=== PATIENT | male | born 1945 | race Caucasian/White ===

== ENCOUNTER 2018-02-21 20:18 | Inpatient (IN) | payer OTHER ==
[2018-02-21] MEDS ORDERED: NS 1,000 ML IV ONE (20:48)
[2018-02-21] MEDS ORDERED: ONDANSETRON 4 MG/2 ML VIAL IVP ONE (20:48)
--- NOTE | 2018-02-21 21:01 | CPEKG ---
Heart Rate: 80 RR Interval: 750 P-R Interval: 148 QRSD Interval: 82 QT Interval: 364 QTC Interval: 420 P [place]: 64 QRS [place]: 232 T Wave [place]: 30 EKG Severity - OTHERWISE NORMAL ECG - EKG Impression: SINUS RHYTHM EKG Impression: RIGHT AXIS DEVIATION Electronically Signed By: Luana Mcnally 21-Feb-2018 22:43:00
[2018-02-21 21:16] LABS: PLATELET COUNT 189 10^3/uL (150-400)
[2018-02-21] MEDS ORDERED: LIDOCAINE 2% VISCOUS 15 ML UDCUP PO ONE (21:32)
[2018-02-21] MEDS ORDERED: MAG HYDROX/AL HYDROX/SIMETH 30 ML UDCUP PO ONE (21:32)
[2018-02-21] MEDS ORDERED: HYOSCYAMINE SULFATE 0.125 MG TAB PO ONE (21:32)
[2018-02-21] MEDS ORDERED: FAMOTIDINE 20 MG/2 ML SDV IVP ONE (21:32)
--- NOTE | 2018-02-21 21:32 | EDPHY ---
General Time Seen by Provider: 02/21/18 21:17 Narrative: CHIEF COMPLAINT: Nausea vomiting, abdominal pain HISTORY OF PRESENT ILLNESS: Patient presents with spouse at bedside. He complains of nausea and vomiting that started 7:00 a.m. This morning. He feels that is related to a meal he had a restaurant last night at 5:00 p.m.. He woke with sudden onset of vomiting and several episodes of this. It is nonbloody mostly clear to yellow tinged. No diarrhea at any time. He does describe "rabbit pellets." The pain started in the epigastrium and radiates up into the chest. He is also now having generalized abdominal pain as well. Worse with any kind of movement. Minimal improvement rest. He does feel better to sit up at this time. No other associated complaints or modifying factors. No previous coronary artery diagnosis. No family history of NE or coronary artery disease prior to age 65. REVIEW OF SYSTEMS: Ten systems reviewed and are negative unless otherwise noted in the HPI PCP: Dr. Vallecillo SPECIALISTS: Orthopedist Dr. Loving PAST MEDICAL HISTORY: Orthopedic injuries PAST SURGICAL HISTORY: Bilateral knee surgeries remotely. SOCIAL HISTORY: Never smoker. Rare alcohol use. No drug use. Lives and works here locally. FAMILY HISTORY: Noncontributory EXAMINATION General Appearance: Alert, no distress. Chose to sit up in a chair Head: normocephalic, atraumatic Eyes: Pupils equal and round, no conjunctival pallor or injection ENT, Mouth: Mucous membranes moist. Airway is widely patent. Neck: Normal inspection, supple, non-tender Respiratory: Lungs are clear to auscultation. No wheezing, rhonchi or crackles. Splinting. Cardiovascular: Regular rate and rhythm. No murmur. No carotid bruit. No abdominal bruit appreciated Gastrointestinal: Abdomen is soft and nondistended. There is generalized tenderness in all 4 quadrants symmetrically. No guarding. No rigidity. Bowel sounds are present in all 4 quadrants. There is no CVA tenderness. Back: non-tender, no bony abnormalities Neurological: A&O, nonfocal, normal gait Skin: Warm and dry, no rash. No petechiae or purpura. No ecchymosis. Extremities: Nontender, no pedal edema symmetric range of motion. Psychiatric: Mood and affect normal DIFFERENTIAL DIAGNOSES: Including but not limited to cholecystitis, cholelithiasis, pancreatitis, enteritis, colitis, gastroenteritis, reflux, esophagitis, ACS MDM: 9:30 p.m. Nausea vomiting followed by epigastric abdominal pain that is now changed to generalized abdominal pain the abdomen is soft and benign but does have tenderness in all 4 quadrants. He has a mild leukocytosis. He is not tolerating intake by mouth. Thus I have ordered CT scan of the abdomen pelvis. I have also ordered Pepcid, IV pain medication and GI cocktail. He has had no diarrhea, thus the likelihood of true gastroenteritis or food-borne illness is low. He does not have any abnormality on his EKG, and his vital signs are within normal limits. Troponin is pending. Chest x-ray has been ordered. He is in no acute distress. Prefers to sit up in a chair bedside but his abdominal exam was performed while completely supine in a bed. 10:05 p.m. Troponin is negative. I have reviewed the chest x-ray without the aid of the radiologist read the mediastinum does appear mildly widened to me. Thus I reviewed the x-ray with Dr. Mcnally and he agrees. This may be artifact but in order to ensure no intrathoracic abnormality we have added CT angiography of the chest. This will be in addition to the CT abdomen and pelvis. The patient will be going over the very soon. I relayed the patient remains awake and alert no acute distress. He is not hypotensive. He has good signs of perfusion his pain is significantly improved with the IV morphine he received 11:15 p.m. I have reviewed the CT scans with Dr. Mcnally, without the aid of the radiologist. I do not appreciate any dissection of the aorta. The formal interpretation is pending radiologist at this time. I have re-evaluated him at that time he was asking for further pain medication we have administered 0.5 mg of Dilaudid IV. 11:35 p.m. Patient re-evaluated. Pain improving. Resting comfortably. Awaiting CT interpretations. 11:40 p.m. Case discussed with radiologist Dr. Ramirez. CT scan of the chest reveals normal appearing aorta. No PE. Hiatal hernia noted. No other acute findings. CT abdomen and pelvis reveals same hiatal hernia. There is gallbladder hydrops of 1.6 cm stone lumen. No choledocholithiasis. Minimal inflammation of the gallbladder. No pericholecystic fluid. There is some mild inflammation of the small bowel and stomach. There is an incidental note of a spondylolysis at L5-S1 without obvious spondylolisthesis. We discussed that the patient may need a HIDA scan the morning but there is not appear to be any clinical significance for ultrasound at this time. 11:45 p.m. Patient re-evaluated. Comfortable at this time but still complains of pain. He agrees with admission to the hospital. Nominal exam remains nonacute, nonsurgical at this time. No peritonitis. He has not vomited since arrival. Given the laboratory studies and his CT scan findings he will be admitted to the hospital. 12:00 a.m. Case discussed with hospitalist Dr. Figueroa. She agrees with admission to the hospital. He is admitted to her service in stable condition to a medical- surgical bed. Admitted for fluid resuscitation, pain control and likely will need a HIDA scan in the morning. Do not feel he warrants surgical intervention at this time, and Dr. Figueroa will evaluate the patient determine any necessary consultations. 12:30 a.m. 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 The patient is already well aware of this. This was diagnosed in the young teen years for him likely congenital. No spondylolisthesis. No deficits from this on examination today. He has been followed by this from primary care physician and spinal specialist. He is currently being taken to his bed upstairs at this time stable condition. SUPERVISION: Patient was independently examined, but I discussed the case with my secondary supervising physician Dr. Mcnally - Diagnostics Imaging Results: Imaging Impressions Abdomen CT 02/21/18 21:31 Impression: 1. There is no CT evidence of pulmonary artery thromboemboli. 2. There is no evidence of a thoracic aortic aneurysm or dissection. 3. There is a small hiatal hernia. Contrast Enhanced CT Scan of the Abdomen and Pelvis: Liver: The portal venous phase is normal, with no mass. Bile Ducts: Normal. Gallbladder: There is gallbladder hydrops and a 1.6 x 1.6 cm gallstone present. There is some trace inflammatory thickening along the right anterior conal fascia, with some equivocal trace pericholecystic fluid seen on series 8, image 18. If there is further clinical concern, sonography or a nuclear medicine HIDA scan could be considered. Pancreas: The pancreatic head, neck, body, tail, and the uncinate process appear normal. Spleen: Normal. Adrenal Glands: Normal. Kidneys/Ureters/Urinary Bladder: The kidneys are normal in size, shape, and position. There is no hydronephrosis, although there are extrarenal pelves, left greater than right. The ureters are not dilated or deviated. The urinary bladder is incompletely distended. GI Tract: There is mild gastric distention with a fluid debris level. There is a small amount of intraluminal fluid within portions of the small bowel, however not appearing abnormally dilated. There is some minimal wall enhancement of the distal ileum. The above features may reflect a mild gastroenteric dysmotile syndrome. There is moderate constipation, predominantly right-sided. There are some rare noninflamed sigmoid colon diverticula. The retrocecal appendix appears normal, seen on coronal series 603, images 45-48 and on series 8, images 44-54. Retroperitoneum: There is no adenopathy along the periaortic oh iliac vascular tree. Mesentery/Omentum/Peritoneum: There is no ascites, pneumoperitoneum, or intra- abdominal localized fluid collection. Vessels: The abdominal aorta is normal in size, and tapers normally. The IVC is normal in caliber. The splenic vein, superior mesenteric vein, and the main portal vein are patent. Reproductive Organs: The prostate gland is mildly enlarged, measuring 3.7 x 4.8 cm. The seminal vesicles are unremarkable. Abdominal Wall: Negative. Osseous Structures: There is trace retrolisthesis at L4-L5. While there is no significant L5-S1 spondylolisthesis, there are bilateral L5 pars interarticularis defects (spondylolysis). There is no aggressive osseous lesion. Impression: 1. Gallbladder hydrops with cholelithiasis and questionable trace pericholecystic fluid, as well as mild inflammation along the right anterior lateral conal fascia. If there is further clinical concern, correlative sonography or a nuclear medicine hepatobiliary scan could be considered. 2. Query mild gastroenteric dysmotile syndrome. There is no evidence of a mechanical bowel obstruction. 3. Moderate constipation, predominantly right-sided. 4. 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 Findings were discussed with Nikhil De La Torre PA-C at 23:38, on 02/21/2018. Chest X-Ray 03/25/18 21:34 Impression: No acute intrathoracic abnormality. Chest/Thorax CTA 02/21/18 22:04 Impression: 1. There is no CT evidence of pulmonary artery thromboemboli. 2. There is no evidence of a thoracic aortic aneurysm or dissection. 3. There is a small hiatal hernia. Contrast Enhanced CT Scan of the Abdomen and Pelvis: Liver: The portal venous phase is normal, with no mass. Bile Ducts: Normal. Gallbladder: There is gallbladder hydrops and a 1.6 x 1.6 cm gallstone present. There is some trace inflammatory thickening along the right anterior conal fascia, with some equivocal trace pericholecystic fluid seen on series 8, image 18. If there is further clinical concern, sonography or a nuclear medicine HIDA scan could be considered. Pancreas: The pancreatic head, neck, body, tail, and the uncinate process appear normal. Spleen: Normal. Adrenal Glands: Normal. Kidneys/Ureters/Urinary Bladder: The kidneys are normal in size, shape, and position. There is no hydronephrosis, although there are extrarenal pelves, left greater than right. The ureters are not dilated or deviated. The urinary bladder is incompletely distended. GI Tract: There is mild gastric distention with a fluid debris level. There is a small amount of intraluminal fluid within portions of the small bowel, however not appearing abnormally dilated. There is some minimal wall enhancement of the distal ileum. The above features may reflect a mild gastroenteric dysmotile syndrome. There is moderate constipation, predominantly right-sided. There are some rare noninflamed sigmoid colon diverticula. The retrocecal appendix appears normal, seen on coronal series 603, images 45-48 and on series 8, images 44-54. Retroperitoneum: There is no adenopathy along the periaortic oh iliac vascular tree. Mesentery/Omentum/Peritoneum: There is no ascites, pneumoperitoneum, or intra- abdominal localized fluid collection. Vessels: The abdominal aorta is normal in size, and tapers normally. The IVC is normal in caliber. The splenic vein, superior mesenteric vein, and the main portal vein are patent. Reproductive Organs: The prostate gland is mildly enlarged, measuring 3.7 x 4.8 cm. The seminal vesicles are unremarkable. Abdominal Wall: Negative. Osseous Structures: There is trace retrolisthesis at L4-L5. While there is no significant L5-S1 spondylolisthesis, there are bilateral L5 pars interarticularis defects (spondylolysis). There is no aggressive osseous lesion. Impression: 1. Gallbladder hydrops with cholelithiasis and questionable trace pericholecystic fluid, as well as mild inflammation along the right anterior lateral conal fascia. If there is further clinical concern, correlative sonography or a nuclear medicine hepatobiliary scan could be considered. 2. Query mild gastroenteric dysmotile syndrome. There is no evidence of a mechanical bowel obstruction. 3. Moderate constipation, predominantly right-sided. 4. 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 Findings were discussed with Nikhil De La Torre PA-C at 23:38, on 02/21/2018. - History Smoking Status: Never smoked - Objective Vital Signs: Initial Vital Signs Temperature (C) 98.2 F 02/21/18 20:21 Heart Rate 96 02/21/18 20:21 Respiratory Rate 17 02/21/18 20:21 Blood Pressure 145/94 H 02/21/18 20:21 O2 Sat (%) 93 02/21/18 20:21 O2 Delivery Mode Nasal Cannula O2 (L/minute) 2 Allergies/Adverse Reactions: meloxicam Allergy (Verified 02/21/18 20:25) Home Medications: Medication Instructions Recorded NK [No Known Home Meds] 02/21/18 Laboratory Results: Laboratory Results 02/21/18 20:45 02/21/18 20:45 02/21/18 02/21/18 02/21/18 20:45 20:45 20:45 WBC 13.37 10^3/uL H 10^3/uL (3.80-9.50) RBC 5.58 10^6/uL 10^6/uL (4.40-6.38) Hgb 16.9 g/dL g/dL (13.7-17.5) Hct 49.3 % % (40.0-51.0) MCV 88.4 fL fL (81.5-99.8) MCH 30.3 pg pg (27.9-34.1) MCHC 34.3 g/dL g/dL (32.4-36.7) RDW 12.6 % % (11.5-15.2) Plt Count 189 10^3/uL 10^3/uL (150-400) MPV 9.6 fL fL (8.7-11.7) Neut % (Auto) 81.7 % H % (39.3-74.2) Lymph % (Auto) 10.1 % L % (15.0-45.0) Dickenson % (Auto) 7.0 % % (4.5-13.0) Eos % (Auto) 0.6 % % (0.6-7.6) Baso % (Auto) 0.3 % % (0.3-1.7) Nucleat RBC Rel Count 0.0 % % (0.0-0.2) Absolute Neuts (auto) 10.93 10^3/uL H 10^3/uL (1.70-6.50) Absolute Lymphs (auto) 1.35 10^3/uL 10^3/uL (1.00-3.00) Absolute Monos (auto) 0.93 10^3/uL H 10^3/uL (0.30-0.80) Absolute Eos (auto) 0.08 10^3/uL 10^3/uL (0.03-0.40) Absolute Basos (auto) 0.04 10^3/uL 10^3/uL (0.02-0.10) Absolute Nucleated RBC 0.00 10^3/uL 10^3/uL (0-0.01) Immature Gran % 0.3 % % (0.0-1.1) Immature Gran # 0.04 10^3/uL 10^3/uL (0.00-0.10) Sodium 143 mEq/L mEq/L (135-145) Potassium 4.2 mEq/L mEq/L (3.5-5.2) Chloride 102 mEq/L mEq/L (97-110) Carbon Dioxide 26 mEq/l mEq/l (22-31) Anion Gap 15 mEq/L mEq/L (8-16) BUN 11 mg/dL mg/dL (7-23) Creatinine 1.0 mg/dL mg/dL (0.7-1.3) Estimated GFR > 60 Glucose 93 mg/dL mg/dL (70-100) Calcium 10.2 mg/dL mg/dL (8.5-10.4) Total Bilirubin 1.0 mg/dL mg/dL (0.1-1.4) Conjugated Bilirubin 0.2 mg/dL mg/dL (0.0-0.5) Unconjugated Bilirubin 0.8 mg/dL mg/dL (0.0-1.1) AST 29 IU/L IU/L (17-59) ALT 39 IU/L IU/L (21-72) Alkaline Phosphatase 64 IU/L IU/L (38-126) Troponin I < 0.012 ng/mL ng/mL (0.000-0.034) Total Protein 8.1 g/dL g/dL (6.3-8.2) Albumin 4.7 g/dL g/dL (3.5-5.0) Lipase 80 IU/L IU/L (23-300) Medications Given: Discontinued Medications Al Hydroxide/Mg Hydroxide (Maalox Susp) 30 ml PO ONCE ONE Stop: 02/21/18 21:33 Last Admin: 02/21/18 21:51 Dose: 30 ml Famotidine (Pepcid) 20 mg IVP EDNOW ONE Stop: 02/21/18 21:33 Last Admin: 02/21/18 21:51 Dose: 20 mg Hydromorphone HCl (Dilaudid) 0.5 mg IVP EDNOW ONE Stop: 02/21/18 23:05 Last Admin: 02/21/18 23:13 Dose: 0.5 mg Hyoscyamine Sulfate (Levsin, Hyomax-Sl) 0.25 mg PO ONCE ONE Stop: 02/21/18 21:33 Last Admin: 02/21/18 21:51 Dose: 0.25 mg Sodium Chloride (Ns) 1,000 mls @ 0 mls/hr IV ONCE ONE; Wide Open PRN Reason: Protocol Stop: 02/21/18 20:49 Last Admin: 02/21/18 20:56 Dose: 1,000 mls Lidocaine (Lidocaine 2% Viscous) 15 ml PO ONCE ONE Stop: 02/21/18 21:33 Last Admin: 02/21/18 21:51 Dose: 15 ml Morphine Sulfate (Morphine) 6 mg IVP EDNOW ONE Stop: 02/21/18 21:33 Last Admin: 02/21/18 21:53 Dose: 6 mg Ondansetron HCl (Zofran) 4 mg IVP EDNOW ONE Stop: 02/21/18 20:49 Last Admin: 02/21/18 20:56 Dose: 4 mg Departure - Departure Disposition: Home, Routine, Self-Care Clinical Impression: Enteritis, Gallbladder hydrops, Spondylolysis of lumbar region Gastritis Qualifiers: Gastritis type: unspecified gastritis Chronicity: acute Gastritis bleeding: without bleeding Qualified Code(s): K29.00 - Acute gastritis without bleeding Cholelithiasis Qualifiers: Cholelithiasis location: gallbladder Cholecystitis presence: without cholecystitis Biliary obstruction: without biliary obstruction Qualified Code(s) : K80.20 - Calculus of gallbladder without cholecystitis without obstruction Condition: Good
[2018-02-21] MEDS ORDERED: IOPAMIDOL (ISOVUE-300) 100 ML BTL ONE (21:44)
[2018-02-21] MEDS ORDERED: IOPAMIDOL (ISOVUE 370) 100 ML BTL IV ONE (22:08)
[2018-02-21] MEDS ORDERED: HYDROmorphONE/DILAUDID 1 MG/ML INJ IVP ONE (23:04)
[2018-02-21] MEDS ORDERED: HYDROmorphONE/DILAUDID 2 MG/ML INJ ONE (23:10)
[2018-02-22] MEDS ORDERED: NS 1,000 ML IV SCH (01:00)
[2018-02-22] MEDS ORDERED: MBX SOLN 30 ML BOTTLE PO PRN (01:03)
[2018-02-22] MEDS: ONDANSETRON 4 MG/2 ML VIAL IVP PRN (01:27)
[2018-02-22] MEDS: HYDROmorphone HCL/NS 0.5 MG/ML SYR IVP PRN ×4 (01:27→21:08)
[2018-02-22 04:54] LABS: PLATELET COUNT 143 10^3/uL (150-400)
[2018-02-22] MEDS ORDERED: LACTULOSE 20 GM/30 ML UDCUP PO PRN (07:59)
[2018-02-22] MEDS ORDERED: MAGNESIUM HYDROXIDE 30 ML UDCUP PO PRN (07:59)
[2018-02-22] MEDS ORDERED: BISACODYL 10 MG SUPP PR PRN (07:59)
--- NOTE | 2018-02-22 08:28 | PDGENHP ---
History and Physical - Chief Complaint Abdominal pain, nausea vomiting - History of Present Illness Source-patient able to provide majority of the history. He is a little somnolent after receiving Dilaudid. EMR was reviewed and case discussed with ED provider. HPI-this is a pleasant 72-year-old gentleman with past medical history significant for arthritis and spondylosis lysis who presents emergency department today with complaints of 1 day history of nausea vomiting and diffuse abdominal pain. Patient reports that he woke up approximately 0700 with active nausea and vomiting. He denies any hematemesis. No melena or hematochezia. Patient does report that he passed a few rabbit pellets but otherwise has had inconsistent about BMs. Patient denies any fevers or chills. No recent sick contacts. Patient thinks he may have contracted something while eating at a restaurant yesterday. His however is healthy. Patient does note that approximately 2 weeks ago patient when out to dine and had similar symptoms the following day but did not seek any medical treatment at that time. Patient denies any focal abdominal pain. Positive distension. Pain is described as cramping intermittent. Dilaudid has improved his symptoms slightly but he continues to have intermittent exacerbations. Patient has not had any further episodes of vomiting since arrival to the floor. History Information - Allergies/Home Medication List Allergies/Adverse Reactions: meloxicam Allergy (Verified 02/21/18 20:25) Home Medications: NK [No Known Home Meds] 02/21/18 [Last Taken Unknown] I have personally reviewed and updated: family history, medical history, social history, surgical history - Past Medical History Additional medical history: Arthritis, spondylolytic lysis - Surgical History Additional surgical history: Bilateral knee arthroscopic surgery. - Family History Additional family history: Father with history of sleep disorder. No family history of coronary artery disease or gallbladder disease. - Social History Smoking Status: Never smoked Alcohol Use: Rarely Drug Use: None Additional social history: Patient is lives with his . Cor status- full Review of Systems Review of Systems: ROS: 10pt was reviewed & negative except for what was stated in HPI & below Constitutional: Denies: chills, fever, weight loss EENMT: Reports: no symptoms Cardiac: Reports: no symptoms Respiratory: Reports: no symptoms Gastrointestinal: Reports: vomitting, abdominal pain, constipation, nausea, other (See HPI). Denies: black stools, rectal bleeding, diarrhea Genitourinary: Denies: dysuria, hematuria Muscolosketal: Reports: no symptoms. Denies: muscle pain Skin: Reports: no symptoms Neurological: Reports: no symptoms Physical Exam Physical Exam: Selected Entries 02/21/18 20:21 Blood Pressure Automatic Method Heart Rate 96 Respiratory 17 Rate O2 Sat (%) 93 Temperature (C) 36.8 C Blood Pressure 145/94 H Mean Arterial 111 H Pressure (MAP) O2 Delivery Room Air Mode Temperature Oral Source Temp Pulse Resp BP Pulse Ox 36.7 C 85 16 112/71 94 02/22/18 08:00 02/22/18 08:00 02/22/18 08:00 02/22/18 08:00 02/22/18 08:00 O2 (L/minute) 2 Constitutional: no apparent distress, chronically ill appearing, uncomfortable, other (NAD. Patient is resting in bed asleep. It does appear uncomfortable and grimaces intermittently.) Eyes: PERRL, anicteric sclera, EOMI, No scleral injection Ears, Nose, Mouth, Throat: no oral mucosal ulcers, dry mucous membranes, other ( No nasal discharge), No poor dentition Cardiovascular: regular rate and rhythym, no murmur, rub, or gallop, pulses symmetric bilaterally, No edema Peripheral Pulses: 2+: dorsalis-pedis (R), dorsalis-pedis (L) Respiratory: no respiratory distress, no rales or rhonchi, clear to auscultation , reduced air movement (Bibasilar.), No expiratory wheeze Gastrointestinal: no palpable masses, tenderness (Diffusely tender.), distension , other (Hypoactive bowel sounds. Patient abdomen soft but full by lateral lower abdomen.), No patel's sign, No guarding, No rebound Genitourinary: no bladder tenderness, No urbina in urethra Skin: warm, other (Pallor), No rash Musculoskeletal: generalized weakness Neurologic: AAOx3 (Patient is slightly sedated following Dilaudid.), sensation intact bilaterally, No CN II-XII Intact, No facial droop Psychiatric: interacting appropriately, not anxious, not encephalopathic, thought process linear, flat affect Lab Data & Imaging Review 02/22/18 04:15 02/22/18 04:15 WBC 12.20 10^3/uL (3.80-9.50) H 02/22/18 04:15 RBC 4.76 10^6/uL (4.40-6.38) 02/22/18 04:15 Hgb 14.5 g/dL (13.7-17.5) 02/22/18 04:15 Hct 43.0 % (40.0-51.0) 02/22/18 04:15 MCV 90.3 fL (81.5-99.8) 02/22/18 04:15 MCH 30.5 pg (27.9-34.1) 02/22/18 04:15 MCHC 33.7 g/dL (32.4-36.7) 02/22/18 04:15 RDW 12.9 % (11.5-15.2) 02/22/18 04:15 Plt Count 143 10^3/uL (150-400) L 02/22/18 04:15 MPV 9.8 fL (8.7-11.7) 02/22/18 04:15 Neut % (Auto) 81.9 % (39.3-74.2) H 02/22/18 04:15 Lymph % (Auto) 7.6 % (15.0-45.0) L 02/22/18 04:15 [place] % (Auto) 9.7 % (4.5-13.0) 02/22/18 04:15 Eos % (Auto) 0.3 % (0.6-7.6) L 02/22/18 04:15 Baso % (Auto) 0.2 % (0.3-1.7) L 02/22/18 04:15 Nucleat RBC Rel Count 0.0 % (0.0-0.2) 02/22/18 04:15 Absolute Neuts (auto) 9.98 10^3/uL (1.70-6.50) H 02/22/18 04:15 Absolute Lymphs (auto) 0.93 10^3/uL (1.00-3.00) L 02/22/18 04:15 Absolute Monos (auto) 1.18 10^3/uL (0.30-0.80) H 02/22/18 04:15 Absolute Eos (auto) 0.04 10^3/uL (0.03-0.40) 02/22/18 04:15 Absolute Basos (auto) 0.03 10^3/uL (0.02-0.10) 02/22/18 04:15 Absolute Nucleated RBC 0.00 10^3/uL (0-0.01) 02/22/18 04:15 Immature Gran % 0.3 % (0.0-1.1) 02/22/18 04:15 Immature Gran # 0.04 10^3/uL (0.00-0.10) 02/22/18 04:15 Sodium 140 mEq/L (135-145) 02/22/18 04:15 Potassium 4.4 mEq/L (3.5-5.2) 02/22/18 04:15 Chloride 105 mEq/L (97-110) 02/22/18 04:15 Carbon Dioxide 25 mEq/l (22-31) 02/22/18 04:15 Anion Gap 10 mEq/L (8-16) 02/22/18 04:15 BUN 11 mg/dL (7-23) 02/22/18 04:15 Creatinine 0.9 mg/dL (0.7-1.3) 02/22/18 04:15 Estimated GFR > 60 02/22/18 04:15 Glucose 110 mg/dL (70-100) H 02/22/18 04:15 Calcium 9.1 mg/dL (8.5-10.4) 02/22/18 04:15 Magnesium 1.7 mg/dL (1.6-2.3) 02/22/18 04:15 Total Bilirubin 1.0 mg/dL (0.1-1.4) 02/21/18 20:45 Conjugated Bilirubin 0.2 mg/dL (0.0-0.5) 02/21/18 20:45 Unconjugated Bilirubin 0.8 mg/dL (0.0-1.1) 02/21/18 20:45 AST 29 IU/L (17-59) 02/21/18 20:45 ALT 39 IU/L (21-72) 02/21/18 20:45 Alkaline Phosphatase 64 IU/L (38-126) 02/21/18 20:45 Troponin I < 0.012 ng/mL (0.000-0.034) 02/21/18 20:45 Total Protein 8.1 g/dL (6.3-8.2) 02/21/18 20:45 Albumin 4.7 g/dL (3.5-5.0) 02/21/18 20:45 Lipase 80 IU/L (23-300) 02/21/18 20:45 Imaging Review: Portable AP Upright Chest, at 9:48 PM Clinical History: 72-year-old male with worsening epigastric pain radiating into the chest. The patient has complained of nausea and vomiting that began at 7:00 AM today, and was related to a meal from a restaurant last evening. Comparison Study: Chest, dated 02/17/2006. Findings: Telemetry monitoring lead lines are present. The cardiac and mediastinal silhouette is normal in size. There is no focal infiltrate, atelectasis, pleural effusion, peripheral interstitial edema, or pneumothorax. There is no free, subdiaphragmatic air. The osseous structures are notable for a mild levothoracic scoliosis. Impression: No acute intrathoracic abnormality. CT Angiography of the Chest, and Contrast Enhanced CT Scan of the Abdomen and Pelvis Clinical History: 72-year-old male with worsening epigastric pain radiating to the chest, complaining of nausea and vomiting that began at 7:00 AM today, and appears to be related to a meal from a restaurant last evening. The patient does have an elevated white blood cell count. Rule out acute thoracic aortic or intra-abdominal abnormality. Technique: Neither oral nor rectal contrast was administered. Following the uncomplicated intravenous administration of 90 mL of Isovue-370, a multidetector helical CT scan was initially obtained during peak systemic arterial phase from the base of the neck inferiorly to the upper abdomen, and then subsequent portal venous phase imaging was obtained from the lung bases inferiorly through the proximal femora, with images reformatted at 5.00 and 1.25 mm increments, and reviewed at a variety of window and level settings. Parasagittal and paracoronal reconstructed images are reviewed on the workstation. The DFOV is 42.0 cm. Dose reduction techniques were utilized. Comparison Study: Chest radiography at 9:48 PM this evening. Findings: CT Angiography: The main pulmonary artery, the main right and left pulmonary arteries, and the first and second order pulmonary segments are contrast-opacified, with no filling defect to suggest acute or chronic thromboemboli. There is no interventricular septum deviation, nor is there any reflux of contrast into the intrahepatic IVC. The ascending and descending thoracic aorta, as well as the visualized upper abdominal aorta are normal in caliber, with no aneurysm or dissection. The ascending thoracic aorta measures 3.5 x 3.3 cm at the crossing right pulmonary artery, and the descending thoracic aorta measures 2.8 x 2.7 cm at this same level. There is a normal anatomic arrangement of the great vessels off of the aortic arch, with the exception that the left vertebral artery also arises directly off the aortic arch rather than at the left innominate-subclavian junction. There is some minimal LAD coronary artery atherosclerotic calcification. The pericardium is normal. The heart size is normal. Contrast-Enhanced CT Scan of the Chest: The lungs are clear of infiltrate, atelectasis, or pulmonary nodule. There is no pleural effusion, pneumothorax, or pneumomediastinum. There is no pathologically-enlarged adenopathy. The visualized portions of the thyroid gland are normal. The visualized upper abdomen is notable for a "transient hepatic attenuation difference" (JOS) lesion, consistent with physiologic parenchymal enhancement which is noted secondary to a dual hepatic blood supply. On the portal venous phase, this area becomes isodense to the remainder of the hepatic parenchyma. There is a small hiatal hernia observed. The osseous structures are age- appropriate. Impression: 1. There is no CT evidence of pulmonary artery thromboemboli. 2. There is no evidence of a thoracic aortic aneurysm or dissection. 3. There is a small hiatal hernia. Contrast Enhanced CT Scan of the Abdomen and Pelvis: Liver: The portal venous phase is normal, with no mass. Bile Ducts: Normal. Gallbladder: There is gallbladder hydrops and a 1.6 x 1.6 cm gallstone present. There is some trace inflammatory thickening along the right anterior conal fascia, with some equivocal trace pericholecystic fluid seen on series 8, image 18. If there is further clinical concern, sonography or a nuclear medicine HIDA scan could be considered. Pancreas: The pancreatic head, neck, body, tail, and the uncinate process appear normal. Spleen: Normal. Adrenal Glands: Normal. Kidneys/Ureters/Urinary Bladder: The kidneys are normal in size, shape, and position. There is no hydronephrosis, although there are extrarenal pelves, left greater than right. The ureters are not dilated or deviated. The urinary bladder is incompletely distended. GI Tract: There is mild gastric distention with a fluid debris level. There is a small amount of intraluminal fluid within portions of the small bowel, however not appearing abnormally dilated. There is some minimal wall enhancement of the distal ileum. The above features may reflect a mild gastroenteric dysmotile syndrome. There is moderate constipation, predominantly right-sided. There are some rare noninflamed sigmoid colon diverticula. The retrocecal appendix appears normal, seen on coronal series 603, images 45-48 and on series 8, images 44-54. Retroperitoneum: There is no adenopathy along the periaortic oh iliac vascular tree. Mesentery/Omentum/Peritoneum: There is no ascites, pneumoperitoneum, or intra- abdominal localized fluid collection. Vessels: The abdominal aorta is normal in size, and tapers normally. The IVC is normal in caliber. The splenic vein, superior mesenteric vein, and the main portal vein are patent. Reproductive Organs: The prostate gland is mildly enlarged, measuring 3.7 x 4.8 cm. The seminal vesicles are unremarkable. Abdominal Wall: Negative. Osseous Structures: There is trace retrolisthesis at L4-L5. While there is no significant L5-S1 spondylolisthesis, there are bilateral L5 pars interarticularis defects ( spondylolysis). There is no aggressive osseous lesion. Impression: 1. Gallbladder hydrops with cholelithiasis and questionable trace pericholecystic fluid, as well as mild inflammation along the right anterior lateral conal fascia. If there is further clinical concern, correlative sonography or a nuclear medicine hepatobiliary scan could be considered. 2. Query mild gastroenteric dysmotile syndrome. There is no evidence of a mechanical bowel obstruction. 3. Moderate constipation, predominantly right-sided. 4. 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 Findings were discussed with Nikhil De La Torre PA-C at 23:38, on 02/21/2018. Visualized and Interpreted Chest x-ray results: Yes Visualized and Interpreted imaging results: Yes EKG additional interpertation: NSR in the 80s. RAD. In no acute ST changes. Assessment & Plan Assessment: 72-year-old gentleman who presents with 1 day history of diffuse abdominal pain , nausea and vomiting. Abdominal pain-differential diagnosis including biliary colic, gastroenteritis, acute cholecystitis, the constipation. Patient's pain still remains diffuse. He has continues to have some distension. CT abdomen pelvis showing stones and hydrops of the gallbladder with possibly some some small amount of pericholecystic fluid. Patient does not have a Patel sign at time of exam. Will plan to do a HIDA scan and consult surgery for further recommendations. Cholelithiasis (Acute) without evidence of choledocholithiasis. HIDA as noted above. LFTs within normal limits. Gastroenteritis - nausea vomiting persist on worsened with of narcotics. Continue with Zofran p.r.n.. IV fluid hydration. GI cocktail did improve patient's symptoms and will plan to continue this as well. He received some Pepcid in the emergency department. 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 He does not complain of any acute or chronic at back pain at this time. Supportive care needed. Leukocytosis-likely secondary to patient's dehydration and nausea vomiting and possible gastro enteritis versus cholecystitis. Patient has been afebrile will not add any antibiotic therapy at this time. FEN - IV fluids overnight for supplementation. Patient does appear dehydrated. Electrolyte replacement p.r.n.. Patient will be NPO for HIDA scan and surgical consult. PPX - SCDs. holding anticoagulation pending surgical evaluation. encourage mobilization as tolerated. Cor-full Disposition-patient currently admitted observation status pending HIDA scan and surgical evaluation.
[2018-02-22] MEDS: ACETAMINOPHEN 325 MG TAB PO PRN (09:29)
--- NOTE | 2018-02-22 12:06 | HOSPPROG ---
Hospitalist Progress Note Assessment/Plan: #Acute cholecystitis: positive HIDA. Start IV CTX, Flagyl. NPO. Dr George will evaluate -spoke with and pt and they are hesitant about surgery. My concern is that this is 2md episode in past week #Leukocytosis: due to above. Afebrile. Cont abx #Arthritis: stable #Diet: NPO #Disp: warrants inpatient admission for pain control and surgical consultation Subjective: mild RUQ pain this morning. Had a similar episode last week after eating at [employer] Objective: Vital Signs Temp Pulse Resp BP Pulse Ox 36.7 C 85 16 112/71 94 02/22/18 08:00 02/22/18 08:00 02/22/18 08:00 02/22/18 08:00 02/22/18 08:00 Laboratory Results 02/22/18 04:15 02/22/18 04:15 02/21/18 02/22/18 02/23/18 05:59 05:59 05:59 Intake Total 1500 Output Total 1 Balance 1499 - Time Spent With Patient Time Spent with Patient: greater than 35 minutes Time Spent with Patient: Greater than 35 minutes spent on this patients care, greater than 50% of time spent counseling, educating, and coordinating care regarding the above mentioned plan. - Physical Exam Constitutional: no apparent distress Eyes: PERRL Ears, Nose, Mouth, Throat: moist mucous membranes Cardiovascular: regular rate and rhythym Respiratory: no respiratory distress, no rales or rhonchi Gastrointestinal: normoactive bowel sounds, tenderness (mild RUQ TTP, negative xie's) Skin: warm Neurologic: AAOx3, CN II-XII Intact ICD10 Worksheet Patient Problems: Problems Problem Status Onset Cholelithiasis Acute Enteritis Acute Gallbladder hydrops Acute Gastritis Acute Spondylolysis of lumbar region Acute
[2018-02-22] MEDS: SENNOSIDES/DOCUSATE SODIUM TAB PO SCH ×2 (13:39→21:07)
[2018-02-22] MEDS: cefTRIAXone 2 GM in STERILE WATER INJ 20 ML IV SCH (14:58)
--- NOTE | 2018-02-22 15:04 | ASMTCMCOM ---
CM Note CM Note Notes: Chart reviewed. Patient admitted via ED for Nausea and vomiting, R/O food poisoning, Normally lives independent with his . No needs identified at present. CM available should needs arise. CM to follow. Date Signed: 02/22/2018 03:03 PM Electronically Signed By:Dania Garcia RN
[2018-02-22] MEDS: D5W 1/2 NS 1,000 ML IV SCH (19:38)
--- NOTE | 2018-02-23 00:25 | SOAPPROG ---
[facility] Progress Note Assessment/Plan: Assessment: 72 MALE WITH ACUTE CHOLECYSTITIS X 2 DAYS/ LFTs OK/ CT SHOWS MULTIPLE STONES AND INFLAMED GB HIDA NONVIZ GB/ WBC 12K HEENT NONICTERIC/ CHEST CLEAR/ COR RR ABD SOFT, MILDLY TENDER RUQ/ EXTR FULL ROM AND FULL PULSES IMPR SEVERE ACUTE CHOLECYSTITIS WITH HYDROPS REC LAP JEFF IN AM Plan:PT AND WANT TO CONSIDER THERE OPTIONS IN SEARCH OF NATURAL SOLUTIONS/ I HAVE INFORMED THEM OF THE NEED TO PROCEED BEFORE THE INFLAMMATION BECOMES TO SEVERE FOR LA APPROACH/ RISKS AND OPTIONS HAVE BEEN FULLY DISCUSSED BUT THEY WISH TO CONSULT WITH DR GUNN AND FAMILY IN AM BEFORE DECIDING ON SURGERY 02/23/18 00:18 Objective: Vital Signs Temp Pulse Resp BP Pulse Ox 36.8 C 86 16 119/84 H 94 02/22/18 20:00 02/22/18 20:00 02/22/18 20:00 02/22/18 20:00 02/22/18 20:00 Laboratory Results 02/22/18 04:15 02/22/18 04:15 02/21/18 02/22/18 02/23/18 05:59 05:59 05:59 Intake Total 1500 150 Output Total 1 Balance 1499 150 ICD10 Worksheet Patient Problems: Problems Problem Status Onset Cholelithiasis Acute Enteritis Acute Gallbladder hydrops Acute Gastritis Acute Spondylolysis of lumbar region Acute
[2018-02-23] MEDS: D5W 1/2 NS 1,000 ML IV SCH ×2 (05:22→20:15)
[2018-02-23] MEDS: HYDROmorphone HCL/NS 0.5 MG/ML SYR IVP PRN ×3 (05:26→21:21)
[2018-02-23] MEDS: cefTRIAXone 2 GM in STERILE WATER INJ 20 ML IV SCH (08:52)
[2018-02-23] MEDS: SENNOSIDES/DOCUSATE SODIUM TAB PO SCH ×2 (08:52→21:38)
[2018-02-23] MEDS ORDERED: LR 1,000 ML IV ONE (15:55)
[2018-02-23] MEDS ORDERED: BUPIVACAINE 0.5% 30 ML SDV ONE (15:57)
[2018-02-23] MEDS ORDERED: ceFAZolin 1 GM/5 ML SYR ONE (15:57)
[2018-02-23] MEDS ORDERED: HEPARIN 1000 UNIT/1 ML MDV ONE (15:57)
--- NOTE | 2018-02-23 15:58 | SOAPPROG ---
[facility] Progress Note Assessment/Plan: Assessment/Plan: 72 Y M c cholelithiasis and acute cholecystitis. Seen and examined by Dr. George several times today. Patient initially refused our recommendation for surgery. Now he is amenable to lap elbert. Dr. George discussed risks and options in detail. He also discussed pt with hospitalist, Dr. Woodson, and his outpatient transplant case manager, Dr. Vallecillo. Will try to get patient back onto our surgery schedule. Timing up to OR availability- -uncertain for now. Continue NPO, scheduled IV abx. 02/23/18 15:55 Objective: Vital Signs Temp Pulse Resp BP Pulse Ox 36.8 C 88 18 113/66 90 L 02/23/18 08:00 02/23/18 08:00 02/23/18 08:00 02/23/18 08:00 02/23/18 08:00 Laboratory Results 02/22/18 04:15 02/22/18 04:15 02/22/18 02/23/18 02/24/18 05:59 05:59 05:59 Intake Total 1500 1400 Output Total 1 Balance 1499 1400 ICD10 Worksheet Patient Problems: Problems Problem Status Onset Cholelithiasis Acute Enteritis Acute Gallbladder hydrops Acute Gastritis Acute Spondylolysis of lumbar region Acute
--- NOTE | 2018-02-23 16:26 | ASMTCMCOM ---
CM Note CM Note Notes: Patient to undergo lap cholecystectomy. Needs to be determined. CM to follow. Date Signed: 02/23/2018 04:25 PM Electronically Signed By:Dania Garcia RN
--- NOTE | 2018-02-23 16:33 | PDANEPAE ---
[facility] History of Present Illness Patient presents for tabitha PALOMINO Past Medical History - Pulmonary History Hx Oxygen in Use at Home: No Hx Sleep Apnea: Yes Sleep Apnea Screening Result - Last Documented: Positive - Endocrine History Hx Diabetes: No - Chronic Pain History Chronic Pain: Yes ANE Review of Systems Review of Systems: ANE Patient History - Allergies Allergies/Adverse Reactions: meloxicam Allergy (Verified 02/22/18 09:35) "memory loss" - Home Medications Home medications: home medication list seen and reviewed Home Medications: NK [No Known Home Meds] 02/21/18 [Last Taken Unknown] - NPO status NPO Status: no food or drink >8 hours NPO Since - Liquids (Date): 02/22/18 NPO Since - Liquids (Time): 02:30 NPO Since - Solids (Date): 02/23/18 NPO Since - Solids (Time): 00:01 - Smoking Hx Smoking Status: Never smoked - Alcohol Use Alcohol Use: Rarely ANE Labs/Vital Signs - Labs Result Diagrams: 02/22/18 04:15 02/22/18 04:15 - Vital Signs Blood Pressure: 115/72 Heart Rate: 86 Respiratory Rate: 16 O2 Sat (%): 90 Height: 167.6 cm Weight: 72.6 kg ANE Physical Exam - Airway Neck exam: FROM Mallampati Score: Class 2 Mouth exam: normal dental/mouth exam - Pulmonary Pulmonary: no respiratory distress - Cardiovascular Cardiovascular: regular rate and rhythym - ASA Status ASA Status: II ANE Anesthesia Plan Anesthesia Plan: general endotracheal anesthesia (RBA discussed), spinal
[2018-02-23] MEDS ORDERED: PROPOFOL 200 MG/20 ML VIAL ONE (16:36)
[2018-02-23] MEDS ORDERED: LIDOCAINE 2% 5 ML SDV ONE (16:36)
[2018-02-23] MEDS ORDERED: SUCCINYLCHOLINE CHLORIDE 200 MG/10 ML SYR IVP ONE ×2 (16:36)
[2018-02-23] MEDS ORDERED: fentaNYL 100 MCG/2 ML INJ ONE ×4 (16:36→18:49)
[2018-02-23] MEDS ORDERED: PHENYLEPHRINE HCL 100 MCG/ML SYR ONE (16:49)
[2018-02-23] MEDS ORDERED: ROCURONIUM 50 MG/5 ML VIAL ONE (16:50)
--- NOTE | 2018-02-23 17:17 | HOSPPROG ---
Hospitalist Progress Note Assessment/Plan: Assessment: 72-year-old male presents with acute cholecystitis Plan: 1. Acute cholecystitis. Evidenced by positive HIDA scan, right upper quadrant pain exacerbated by p.o. Intake, CT scan of the abdomen demonstrating hydrops, some mild dameon cholestatic fluid with inflammation, all clinically consistent with acute cholecystitis -counseled patient and extensively regarding the indication for surgery, listened extensively to the concerns about communication, their interest in fully evaluating and reviewing all of the available data prior to deciding on whether not they would like to undergo surgery, and they have decided that they are amenable to surgery today, we also discussed anticipated postoperative recovery, and I encouraged them to reassess the situation with me tomorrow so that we can determine what our anticipated length of stay will be -patient currently NPO -continue on maintenance IV fluids preoperatively -continue on current pain medications -discussed with Dr. George, he reports that he will perform the surgery on the patient today 2. Osteoarthritis. CT scan demonstrating L5 spondylolisthesis, continue current pain management 3. Constipation. Patient has not had a bowel movement during this hospitalization 1 today's leading into it, we will reassess for postoperative ileus tomorrow and engage the patient with oral laxatives once he is able to take p.o. Diet. NPO with IV fluids Prophylaxis. Moderate risk patient, holding pharm given surgery, SCDs Code. Full Disposition. Anticipated discharge uncertain at this time, continue inpatient level of care for surgery today, reassess postoperative recovery tomorrow. Subjective: Patient reports pain is currently well managed in the hospital, pain continues and he does not feel like he can manage at home, no bowel moved Objective: Vital Signs Temp Pulse Resp BP Pulse Ox 37 C 86 16 115/72 90 L 02/23/18 16:11 02/23/18 16:33 02/23/18 16:33 02/23/18 16:33 02/23/18 16:33 Laboratory Results 02/22/18 04:15 02/22/18 04:15 02/22/18 02/23/18 02/24/18 05:59 05:59 05:59 Intake Total 1500 1400 Output Total 1 Balance 1499 1400 - Time Spent With Patient Time Spent with Patient: greater than 35 minutes Time Spent with Patient: Greater than 35 minutes spent on this patients care, greater than 50% of time spent counseling, educating, and coordinating care regarding the above mentioned plan. - Physical Exam Constitutional: no apparent distress, uncomfortable Respiratory: no respiratory distress, no rales or rhonchi, clear to auscultation Gastrointestinal: tenderness (Right upper quadrant), No distension Psychiatric: interacting appropriately, not encephalopathic, thought process linear, anxious ICD10 Worksheet Patient Problems: Problems Problem Status Onset Cholelithiasis Acute Enteritis Acute Gallbladder hydrops Acute Gastritis Acute Spondylolysis of lumbar region Acute
[2018-02-23] MEDS ORDERED: SUGAMMADEX SODIUM 200 MG/2 ML VIAL IVP ONE (17:48)
[2018-02-23] MEDS ORDERED: oxyCODONE IR 5 MG TAB PO PRN (17:53)
[2018-02-23] MEDS ORDERED: LR 500 ML IV PRN (17:53)
[2018-02-23] MEDS ORDERED: NALOXONE HCL 0.4 MG/ML INJ IVP PRN (17:53)
[2018-02-23] MEDS ORDERED: ONDANSETRON 4 MG/2 ML VIAL IVP PRN (17:53)
--- NOTE | 2018-02-23 18:04 | POSTOPPROG ---
Post Op Note Date of Operation: 02/23/18 Surgeon: William George Extruder Operator Horizontal: Desiree Quintana Anesthesiologist: Hemal Caruso Anesthesia: GET(General Endotracheal) Pre-op Diagnosis: cholelithiasis, acute cholecystitis Post-op Diagnosis: same Procedure: lap cholecystectomy Findings: very thick gallbladder with adhesions and thick granular bile c stones Inf/Abcess present in the surg proc area at time of surgery?: Yes Depth: Organ Space EBL: 50-100 Complications: none Drains: Carl Elliott Specimen(s): gallbladder to pathology
--- NOTE | 2018-02-23 18:11 | POSTANESTH ---
Post Anesthetic Evaluation Cardiovascular Status: Similar to Pre-Op Cond Respiratory Status: Similar to Pre-op Cond. Level of Consciousness/Mental Status: Can Participate in Eval Pain Control: Adequate, Prn Tx Ordered Nausea/Vomiting Control: Adequate, Prn Tx Ordered Complications Possibly Related to Anesthesia: None Noted
[2018-02-23] MEDS: fentaNYL 100 MCG/2 ML INJ IVP PRN ×4 (18:31→19:13)
[2018-02-23] MEDS: oxyCODONE IR 5 MG TAB PO PRN (21:44)
[2018-02-24] MEDS: HYDROmorphone HCL/NS 0.5 MG/ML SYR IVP PRN (03:35)
[2018-02-24] MEDS: oxyCODONE IR 5 MG TAB PO PRN ×4 (04:51→21:24)
[2018-02-24 05:08] LABS: PLATELET COUNT 106 10^3/uL (150-400)
[2018-02-24] MEDS: SENNOSIDES/DOCUSATE SODIUM TAB PO SCH ×2 (08:40→21:25)
[2018-02-24] MEDS: ACETAMINOPHEN 325 MG TAB PO PRN ×2 (08:41→16:18)
--- NOTE | 2018-02-24 08:42 | SOAPPROG ---
SOAP Progress Note Assessment/Plan: Assessment/Plan: 72 Y M c cholelithiasis and acute cholecystitis. s/p lap elbert , POD#1. Gallbladder with very thick wall and bile with adhesions and stones. Would recommend continued hospital stay for IV abx. Ileus. Abdomen distended today, hypoactive BS. Clear liquids ok. TAO drainage. Output high but nonbilious, H&H ok, LFTs ok. Suspect output is mostly irrigation fluid from surgery. Continue to monitor. Bile leak possible but unlikely given drainage appearance and doubt active bleeding. S: Just woke up and feels like he can't move on his own. Asking for his sheets to be cleaned. Has not eaten yet. O: alert, nad no jaundice mmm ctab anteriorly rrr abd softly distended, epigastric inc c min serosanguinous drainage. TAO serosanguinous, nonbilious 02/24/18 08:37 Objective: Vital Signs Temp Pulse Resp BP Pulse Ox 36.6 C 97 16 128/79 H 95 02/24/18 08:00 02/24/18 08:00 02/24/18 08:00 02/24/18 08:00 02/24/18 08:00 Laboratory Results 02/24/18 04:21 02/24/18 04:21 02/23/18 02/24/18 02/25/18 05:59 05:59 05:59 Intake Total 1400 2200 Output Total 1595 Balance 1400 605 ICD10 Worksheet Patient Problems: Problems Problem Status Onset Cholelithiasis Acute Enteritis Acute Gallbladder hydrops Acute Gastritis Acute Spondylolysis of lumbar region Acute
[2018-02-24] MEDS: cefTRIAXone 2 GM in STERILE WATER INJ 20 ML IV SCH (08:43)
--- NOTE | 2018-02-24 09:17 | PDMN ---
Medical Necessity Medical necessity: M555 gallbladder or bile duct inflammation or stone- + HIDA scan, ongoing eval needed. sgy consult: mult stones and inflamed GB., rec surgical intervention
[2018-02-24] MEDS: D5W 1/2 NS 1,000 ML IV SCH (12:45)
[2018-02-24] MEDS ORDERED: MAGNESIUM CITRATE 300 ML BOTTLE PO ONE (13:35)
--- NOTE | 2018-02-24 15:18 | HOSPPROG ---
Hospitalist Progress Note Assessment/Plan: Assessment: 72-year-old male presents with acute cholecystitis Plan: 1. Acute cholecystitis. Evidenced by positive HIDA scan, right upper quadrant pain exacerbated by p.o. Intake, CT scan of the abdomen demonstrating hydrops, some mild dameon cholestatic fluid with inflammation, all clinically consistent with acute cholecystitis -POD#1 CCY w/o complications, ongoing drain output, remains in place -d/w Desiree Quintana, she reports very thick GB w/ adhesions and thick granular bile w/ stones, recommends additional 24-48hrs of IV abx, then PO x 5-7 days -counseled patient regarding post-op expectations for pain mgmt, encourage PO Rx , work on BMs to reduce pain from constipation, monitor drain outpt, engage in ambulation/PT 2. Osteoarthritis. CT scan demonstrating L5 spondylolisthesis, continue current pain management 3. Constipation. Patient has not had a bowel movement during this hospitalization, ongoing bowel regimen + mag cit Diet. Clears Prophylaxis. Moderate risk patient, SCDs today, consider pharm tomorrow depending on TAO output Code. Full Disposition. Anticipated discharge uncertain at this time, ongoing drain output and pain Subjective: fatigued w/ minimal w/ movement Objective: Vital Signs Temp Pulse Resp BP Pulse Ox 36.7 C 70 16 94/66 L 96 02/24/18 12:37 02/24/18 12:37 02/24/18 12:37 02/24/18 12:37 02/24/18 12:37 Laboratory Results 02/24/18 04:21 02/24/18 04:21 02/23/18 02/24/18 02/25/18 05:59 05:59 05:59 Intake Total 2200 Output Total 1595 Balance 605 - Time Spent With Patient Time Spent with Patient: greater than 35 minutes Time Spent with Patient: Greater than 35 minutes spent on this patients care, greater than 50% of time spent counseling, educating, and coordinating care regarding the above mentioned plan. - Pending Discharge Pending Discharge Within 24 Hours: Yes Pending Discharge Date: 02/25/18 Pending Discharge Time: 11:00 - Physical Exam Constitutional: no apparent distress, uncomfortable, No not in pain (moderate) Cardiovascular: regular rate and rhythym, no murmur, rub, or gallop, No edema Respiratory: no respiratory distress, no rales or rhonchi, clear to auscultation Gastrointestinal: tenderness (RUQ), No normoactive bowel sounds (hypoactive bowel sounds), No guarding, No distension Skin: other (no erythema at surg sites, TAO in place) Neurologic: AAOx3 Psychiatric: not anxious, not encephalopathic, flat affect, No agitated ICD10 Worksheet Patient Problems: Problems Problem Status Onset Gastritis Acute Enteritis Acute Cholelithiasis Acute Gallbladder hydrops Acute Spondylolysis of lumbar region Acute
--- NOTE | 2018-02-24 16:21 | ASMTCMCOM ---
CM Note CM Note Notes: Pt is s/p lap elbert, not med ready for dc yet, stilll w/drain output and pain issues. PT recommending HHC. Met w/pt and to discuss. They are in agreement and would like to use [facility]. Spoke w/Emmy at [facility] and they can accept if pt goes home Thursday ( they have availability on Thursday). If he dc's tomorrow will have to find other HHC as they do not have PT delivery and mail sorter to see him for Thursday visit. He will need RN also since post-op. Confirmed physical address: [facility] [id number], [place] [address]- notified Emmy at [facility] with this. Also discussed homebound policy. Discussed w/RN. Date Signed: 02/24/2018 04:20 PM Electronically Signed By:Rosalinda Berry RN
[2018-02-25 04:30] LABS: PLATELET COUNT 108 10^3/uL (150-400)
[2018-02-25] MEDS: oxyCODONE IR 5 MG TAB PO PRN ×3 (05:14→21:28)
[2018-02-25] MEDS: HYDROmorphone HCL/NS 0.5 MG/ML SYR IVP PRN ×2 (07:15→20:14)
[2018-02-25] MEDS: POLYETHYLENE GLYCOL 3350 17 GM PKT PO PRN (09:45)
[2018-02-25] MEDS: SENNOSIDES/DOCUSATE SODIUM TAB PO SCH ×2 (09:46→21:30)
[2018-02-25] MEDS: cefTRIAXone 2 GM in STERILE WATER INJ 20 ML IV SCH (09:46)
--- NOTE | 2018-02-25 18:04 | HOSPPROG ---
Hospitalist Progress Note Assessment/Plan: Assessment: 72-year-old male presents with acute cholecystitis Plan: 1. Acute cholecystitis. Present on HIDA and surgical eval -POD#2 CCY w/o complications, ongoing drain output, remains in place -d/w Ashley BUSINESS LIBRARIAN, she reports Dr. George recs another day of post-op monitoring given drain output, has yet to have BM -counseled patient and regarding post-op expectations for pain mgmt, encourage PO Rx, work on BMs to reduce pain from constipation, monitor drain outpt, cont walk schedule to stay engaged in ambulation/PT 2. Osteoarthritis. CT scan demonstrating L5 spondylolisthesis, continue current pain management 3. Constipation and suspected post-op ileus. Patient has not had a bowel movement during this hospitalization, ongoing bowel regimen and ambulation, hypoactive bowel sounds, remains clinically unresolved 4. Suspected atelectasis. Ongoing o2 needs, encouraged IS and ambulation Diet. Clears Prophylaxis. Moderate risk patient, SCDs today, consider pharm tomorrow depending on TAO output Code. Full Disposition. Anticipated discharge uncertain at this time, ongoing drain output and pain Subjective: ongoing RLQ "deep" pain, belching but not passing flatus Objective: Vital Signs Temp Pulse Resp BP Pulse Ox 36.7 C 76 16 118/74 94 02/25/18 15:49 02/25/18 15:49 02/25/18 15:49 02/25/18 15:49 02/25/18 15:49 Laboratory Results 02/25/18 04:03 02/25/18 04:03 02/24/18 02/25/18 02/26/18 05:59 05:59 05:59 Intake Total 2200 655 Output Total 1595 1440 32 Balance 605 -785 -32 - Time Spent With Patient Time Spent with Patient: greater than 35 minutes Time Spent with Patient: Greater than 35 minutes spent on this patients care, greater than 50% of time spent counseling, educating, and coordinating care regarding the above mentioned plan. - Physical Exam Constitutional: no apparent distress, uncomfortable, No not in pain (mild) Cardiovascular: regular rate and rhythym, no murmur, rub, or gallop Respiratory: reduced air movement (bilat bases), inspiratory crackles (bilat bases), No expiratory wheeze, No bronchial breath sounds Gastrointestinal: tenderness (mild RLQ), No normoactive bowel sounds ( hypoactive bowel sounds), No guarding, No distension Skin: other (no erythema at surg sites) Neurologic: AAOx3 Psychiatric: interacting appropriately, not anxious, not encephalopathic, thought process linear ICD10 Worksheet Patient Problems: Problems Problem Status Onset Gastritis Acute Enteritis Acute Cholelithiasis Acute Gallbladder hydrops Acute Spondylolysis of lumbar region Acute
--- NOTE | 2018-02-25 20:22 | SOAPPROG ---
[facility] Progress Note Assessment/Plan: Assessment: Assessment: 72 Y M c cholelithiasis and acute cholecystitis. s/p lap elbert 02/23 S: Moderate pain. Passing flatus, but no BM yet. Eating a regular diet, but doesn't have much of an appetite. O: Alert Afebrile RRR CTA bilaterally Abdomen: distended, mildly tender, incisions cdi, hypoactive bowel sounds TAO drain with serosanguinous drainage, output decreased from 420 to 115 in the last 24 hours. Plan: Get OOB and walking several times today. Miralax for constipation. Ok to be discharged from our standpoint. Follow up in office in one week. Pt seen and evaluated with Dr. George. 02/25/18 20:16 Objective: Vital Signs Temp Pulse Resp BP Pulse Ox 36.5 C 97 16 122/86 H 91 L 02/25/18 19:33 02/25/18 19:33 02/25/18 19:33 02/25/18 19:33 02/25/18 19:33 Laboratory Results 02/25/18 04:03 02/25/18 04:03 02/24/18 02/25/18 02/26/18 05:59 05:59 05:59 Intake Total 2200 655 500 Output Total 1595 1440 32 Balance 605 -785 468 ICD10 Worksheet Patient Problems: Problems Problem Status Onset Cholelithiasis Acute Enteritis Acute Gallbladder hydrops Acute Gastritis Acute Spondylolysis of lumbar region Acute
[2018-02-26] MEDS: oxyCODONE IR 5 MG TAB PO PRN ×3 (01:30→20:55)
[2018-02-26] MEDS: ONDANSETRON 4 MG/2 ML VIAL IVP PRN (10:01)
[2018-02-26] MEDS: cefTRIAXone 2 GM in STERILE WATER INJ 20 ML IV SCH (10:05)
[2018-02-26] MEDS: SENNOSIDES/DOCUSATE SODIUM TAB PO SCH ×2 (10:08→20:23)
[2018-02-26] MEDS: POLYETHYLENE GLYCOL 3350 17 GM PKT PO PRN (10:08)
[2018-02-26] MEDS: ACETAMINOPHEN 325 MG TAB PO PRN ×3 (10:14→20:23)
--- NOTE | 2018-02-26 13:48 | SOAPPROG ---
[facility] Progress Note Assessment/Plan: Assessment: Assessment: 72 Y M c cholelithiasis and acute cholecystitis. s/p lap elbert 02/23 S: Moderate pain. Passing flatus, but no BM yet. Eating a regular diet, but doesn't have much of an appetite. O: Alert Afebrile RRR CTA bilaterally Abdomen: distended, mildly tender, incisions cdi, hypoactive bowel sounds TAO drain with serosanguinous drainage, output decreased from 420 to 115 in the last 24 hours. Plan: Get OOB and walking several times today. Miralax for constipation. Ok to be discharged from our standpoint. Follow up in office in one week. Pt seen and evaluated with Dr. George. 02/25/18 20:16 02/26/18 13:41 Much improved from yesterday, but still having moderate pain requiring Percocet on a regular basis. Passing flatus and 2 small BMs. He was up and walking every 2 hours yesterday, which he feels helped him breathe a little better and took his mind off his pain. TAO drain output decreased over the last 24 hours. Pt would like to stay another night in the hospital due to pain. Most likely home tomorrow. Abdomen softly distended. Incisions cdi. +BS Objective: Vital Signs Temp Pulse Resp BP Pulse Ox 36.7 C 86 18 146/86 H 91 L 02/26/18 10:27 02/26/18 10:27 02/26/18 10:27 02/26/18 10:27 02/26/18 10:27 Laboratory Results 02/25/18 04:03 02/25/18 04:03 02/25/18 02/26/18 02/27/18 05:59 05:59 05:59 Intake Total 655 1560 Output Total 1440 102 Balance -785 1458 ICD10 Worksheet Patient Problems: Problems Problem Status Onset Cholelithiasis Acute Enteritis Acute Gallbladder hydrops Acute Gastritis Acute Spondylolysis of lumbar region Acute
--- NOTE | 2018-02-26 15:45 | ASMTCMCOM ---
CM Note CM Note Notes: Pt. is set up for a homecare d/c with [facility] RN and PT when ready. Pt. address already charted. [facility]'s February Pito is [facility] liaison for the weekend. Date Signed: 02/26/2018 03:44 PM Electronically Signed By:Keshia Hadley LCSW
--- NOTE | 2018-02-26 16:15 | HOSPPROG ---
Hospitalist Progress Note Assessment/Plan: Assessment: 72-year-old male presents with acute cholecystitis Plan: 1. Acute cholecystitis. Present on HIDA and surgical eval -POD#3 CCY w/o complications, ongoing drain output 52 o/n, remains in place -ongoing IV Abx, will give total 7 days post-op given late presentation -rounded w/ patient and Ashley Santamaria from gen surg -counseled patient regarding post-op expectations for pain mgmt (ongoing PO Rx) , encourage PO intake and advancing diet as jeni, work on BMs to reduce pain from constipation (had small BM), monitor drain outpt, cont walk schedule to stay engaged in ambulation/PT 2. Osteoarthritis. CT scan demonstrating L5 spondylolisthesis, continue current pain management 3. Constipation and suspected post-op ileus. Small, hard BM, cont bowel regimen 4. Suspected atelectasis. Ongoing o2 needs o/n, encouraged IS and ambulation, improving and on RA Diet. Clears Prophylaxis. Moderate risk patient, SCDs today, consider pharm tomorrow depending on TAO output Code. Full Disposition. Anticipated discharge 02/27, depending on improvements in PO tolerance and resolution of post-op ileus Subjective: patient reports that IS working really well, smll hard BM, fatigued w/ ambulation Objective: Vital Signs Temp Pulse Resp BP Pulse Ox 36.7 C 86 18 146/86 H 91 L 02/26/18 10:27 02/26/18 10:27 02/26/18 10:27 02/26/18 10:27 02/26/18 10:27 Laboratory Results 02/25/18 04:03 02/25/18 04:03 02/25/18 02/26/18 02/27/18 05:59 05:59 05:59 Intake Total 655 1560 Output Total 1440 102 Balance -785 1458 - Time Spent With Patient Time Spent with Patient: greater than 35 minutes Time Spent with Patient: Greater than 35 minutes spent on this patients care, greater than 50% of time spent counseling, educating, and coordinating care regarding the above mentioned plan. - Pending Discharge Pending Discharge Within 24 Hours: Yes Pending Discharge Date: 02/27/18 Pending Discharge Time: 11:00 - Physical Exam Constitutional: no apparent distress, uncomfortable, No not in pain (mild in RLQ ) Cardiovascular: regular rate and rhythym, no murmur, rub, or gallop Respiratory: no respiratory distress, no rales or rhonchi, clear to auscultation Gastrointestinal: tenderness (mild RLQ, but improving from day prior), No normoactive bowel sounds (more active, but remains hypoactive overall), No guarding, No distension Skin: No erythema (at surg sites) Neurologic: AAOx3, No facial droop Psychiatric: interacting appropriately, not anxious, not encephalopathic, thought process linear ICD10 Worksheet Patient Problems: Problems Problem Status Onset Gastritis Acute Enteritis Acute Cholelithiasis Acute Gallbladder hydrops Acute Spondylolysis of lumbar region Acute
[2018-02-27] MEDS: oxyCODONE IR 5 MG TAB PO PRN ×3 (00:48→11:04)
[2018-02-27] MEDS: ONDANSETRON 4 MG/2 ML VIAL IVP PRN (00:52)
[2018-02-27 07:59] VITALS: BP 119/69
[2018-02-27] MEDS: cefTRIAXone 2 GM in STERILE WATER INJ 20 ML IV SCH (08:12)
[2018-02-27] MEDS: SENNOSIDES/DOCUSATE SODIUM TAB PO SCH (08:12)
--- NOTE | 2018-02-27 08:19 | SOAPPROG ---
SOAP Progress Note Assessment/Plan: Assessment/Plan: 72 Y M c cholelithiasis and acute cholecystitis. s/p lap elbert , POD#4. Probable d/c today. D/c TAO drain. Answered many questions. Added info to d/c plan. Discussed cutting down on narcotic pain meds. S: Doesn't like the hospital food. Had a BM yesterday. O: alert, nad no jaundice mmm ctab anteriorly rrr abd softly distended, epigastric inc c min serosanguinous drainage. TAO serosanguinous, nonbilious 02/27/18 08:17 Objective: Vital Signs Temp Pulse Resp BP Pulse Ox 36.8 C 82 16 119/69 95 02/27/18 07:54 02/27/18 07:54 02/27/18 07:54 02/27/18 07:54 02/27/18 07:54 Laboratory Results 02/25/18 04:03 02/25/18 04:03 02/26/18 02/27/18 02/28/18 05:59 05:59 05:59 Intake Total 1560 1140 Output Total 102 50 Balance 1458 1090 ICD10 Worksheet Patient Problems: Problems Problem Status Onset Cholelithiasis Acute Enteritis Acute Gallbladder hydrops Acute Gastritis Acute Spondylolysis of lumbar region Acute
[2018-02-27] MEDS: ACETAMINOPHEN 325 MG TAB PO PRN (11:05)
--- NOTE | 2018-02-27 11:06 | PDIAF ---
- Diagnosis Diagnosis: Acute cholecystitis, ileus Code Status: Full Code - Medication Management Discharge Medications: Medications to Continue on Transfer Acetaminophen [Tylenol 325mg (*)] 650 mg PO Q4HRS PRN tab 02/27/18 [Last Taken Unknown] Ciprofloxacin [Cipro] 500 mg PO BID #7 tab 02/27/18 [Last Taken Unknown] Sennosides/Docusate Sodium [Senokot-S] 1 tab PO BID #20 tab 02/27/18 [Last Taken Unknown] metroNIDAZOLE [Metronidazole] 500 mg PO Q8 #11 tablet 02/27/18 [Last Taken Unknown] oxyCODONE IR [Oxycodone Ir (*)] 5 - 10 mg PO Q4HRS PRN #20 tab 02/27/18 [Last Taken Unknown] Cardiopulmonary Technician Antibiotics: Cipro 500mg PO bid, Metronidazole 500mg PO q8h Cardiopulmonary Technician Antibiotic Stop Date: 03/02/18 Discharge Medications: Refer to the Discharge Home Medication list for PRN reason. PICC Care - Routine: N/A - Orders Services needed: Home Care, Registered Nurse, Physical Therapy Home Care Face to Face: I certify that this patient was under my care and that I had the required [id number] encounter meeting the encounter requirements on the discharge day. My findings support the fact that the patient is homebound as defined in Home Care Face to Face Continued: CMS Chapter 7 Medicare Benefits Manual 30.1.1 , The condition of the patient is such that there exists a normal inability to leave home and consequently, leaving home would require a considerable and taxing effort. Isolation Type: None Oxygen: NA Diet Recommendation: no restrictions on diet Diet Texture: Regular Texture Diet Wound Care Instructions: You may shower. You will need to put a dressing over your drain site--gauze and tape or a band aid is fine, depending on how much drainage there is. No lifting over 15 lbs. - Follow Up Care Current Providers and Referrals: William George MD [Medical Doctor] - follow up in 2 weeks WILLIAM GUNN [Primary Care Provider] - As per Instructions
--- NOTE | 2018-02-27 11:11 | PDDCSUM ---
Discharge Summary Discharge Summary: DISCHARGE SUMMARY FOLLOW-UP ITEMS: Outpatient wound check Pathology of gallbladder neck at time discharge DATE OF ADMISSION: 02/21/2018 DATE OF DISCHARGE: 02/27/2018 DISCHARGE DIAGNOSES: 1. Acute cholecystitis 2. Constipation and suspected postoperative ileus 3. Acute suspected atelectasis CONSULTATIONS: General surgery PROCEDURES / IMAGING: Laparoscopic cholecystectomy CHIEF COMPLAINT: Acute abdominal pain SUBJECTIVE: Patient is well at time of discharge PHYSICAL EXAM ON DISCHARGE: Systolic blood pressure is 120-140, heart rate 80-90, afebrile overnight, satting well on room air, alert awake oriented x3, lungs are clear auscultation bilaterally, bowel sounds are present, abdomen is soft and nontender, no erythema at surgical sites LABS ON DISCHARGE: Liver panel unremarkable HOSPITAL COURSE BY PROBLEM: The patient presented with acute cholecystitis present high scan and CT of the abdomen with hydrops. He initially wanted to attempt conservative management with IV antibiotics, and when his abdominal pain did not improve, he was amenable to surgery. He underwent laparoscopic cholecystectomy by Dr. William George, and he received perioperative and postoperative antibiotics. He will continue with 3 subsequent days of antibiotics for a total of 7 postoperative days of antibiotics. He has been ambulating and moving his bowels. He experienced postop ileus which has now resolved with a bowel regiment. He also experienced postoperative atelectasis which has responded incentive spirometer. His TAO drain was safely removed prior to discharge. DISCHARGE MEDICATIONS: Please see official discharge medication reconciliation sheet in chart , continue as needed oxycodone, Senokot S while on pain medication, metronidazole 500 g q.8 hours x3 days, ciprofloxacin 500 mg twice daily times 3 days. DISCHARGE INSTRUCTIONS: Please follow up with Dr. George within 2 weeks care instructions in the inner agency form comma follow-up Dr. Vallecillo thereafter. TIME SPENT: Greater than 30 minutes were spent on direct patient care, as well as discharge planning and preparation.
--- NOTE | 2018-02-27 12:01 | ASMTLACE ---
LACE Length of stay for Answers: 4-6 days current admission Acuity / Level of Answers: Yes Care: Did the patient have an inpatient admission? # of Emergency department Answers: 1-2 visits in the last 6 months Score: 8 Date Signed: 02/27/2018 12:01 PM Electronically Signed By:Keshia Hadley LCSW
--- NOTE | 2018-02-27 18:07 | GOP ---
[f rep st] OPERATIVE REPORT DATE OF OPERATION: 02/23/2018 SURGEON: William George MD WEIGHMASTER: QUETA Harris PREOPERATIVE DIAGNOSIS: Acute cholecystitis. POSTOPERATIVE DIAGNOSIS: Acute cholecystitis. PROCEDURE PERFORMED: Laparoscopic cholecystectomy. FINDINGS: Patient was found to have acute hydrops of the gallbladder with necrotic spots in the gall bladder itself. The gallbladder was completely obscured by adhesions. ESTIMATED BLOOD LOSS: Negligible DESCRIPTION OF PROCEDURE: Patient was taken to the operating room where he received satisfactory gen eral endotracheal anesthesia. He was placed in the supine position and prepped and draped in the usu al sterile fashion. A periumbilical incision was made and a Veress needle inserted. Pneumoperitoneu m was established. Trocar was introduced. Laparoscope introduced. Good visualization was obtained. Three other trocars were placed in right upper quadrant under direct vision. The gallbladder was c ompletely obscured from view by omental adhesions. These were carefully taken down using electrocaut yaneli and the Harmonic Scalpel until the entire gallbladder could be visualized and freed up. Gallblad jennifer was quite hydrops'd and distended. Cystic triangle was carefully dissected free. The cystic sydney t and cystic artery were isolated, multiply hemoclipped, and divided after a good clear view was obta ined. That was done with much care to avoid injury to the common bile duct. The peritoneum over the gallbladder was incised, the gallbladder dissected free from the bed and hepatic fossa, and then ext racted through the upper midline port site. Wound was irrigated. Hemostasis was assured. Some Drake ta powder was placed in the gallbladder bed, and a 15 round silicone TAO drain was brought in through one of the trocar sites and placed in Morison pouch. It was secured to the skin with a silk suture. Trocar was then removed under direct vision. Trocar sites were closed with 0 Vicryl for the fascia, 4-0 Monocryl subcuticular stitch for the skin. All layers infiltrated with 0.5% Marcaine. COMPLICATIONS: None. DISPOSITION: Taken to the recovery room in good condition. /[id number]/MODL
== END 2018-02-27 14:03 | disposition home health service (06) | DRG 418 ==
LOC: F1N 02-22 00:42 → OBSVTOIN 02-23 08:23
PROVIDERS: ADMIT Family Medicine; ATTEND Family Medicine
PROC: 0FT44ZZ Resection of Gallbladder, Percutaneous Endoscopic Approach (ICD-10-PCS; principal; 2018-02-23 14:45)
PROC: 0FN44ZZ Release Gallbladder, Percutaneous Endoscopic Approach (ICD-10-PCS; principal; 2018-02-23 14:45)
DX: K80.00 Calculus of gallbladder with acute cholecystitis without obstruction (principal); K82.1 Hydrops of gallbladder; K82.8 Other specified diseases of gallbladder; K56.7 Ileus, unspecified; J98.11 Atelectasis; K52.9 Noninfective gastroenteritis and colitis, unspecified; K59.00 Constipation, unspecified
CPT/HCPCS: 96374; 97116-GP; 97161-GP; 97164-GP; A9537; G0378; G8978-GP-CI; G8978-GP-CL; G8979-GP-CI; J0330; J0696; J1170; J2270; J2370; J2405; J2704; J3010; Q9967